=== PATIENT | female | born 1945 | race Caucasian/White ===

== ENCOUNTER 2024-05-05 04:32 | Inpatient (IN) | payer MEDICARE, BC, SELFPAY ==
[2024-05-04 22:02] VITALS: BP 169/93
[2024-05-04 22:18] LABS: % Basophils 0.8 % (0-2); % Eosinophils 2.9 % (0-6); % Immature Granulocytes 0.2 % (0-0.5); % Monocytes 7.2 % (1.7-9.3); % Neutrophils 68.9 % (42.2-75.2); Absolute Basophils 0.1 10^3/uL (0-0.2); Absolute Eosinophils 0.3 10^3/uL (0-0.7); Absolute Lymphocytes 1.9 10^3/uL (1.2-3.4); Absolute Monocytes 0.7 10^3/uL (0.1-0.6); Absolute Neutrophils 6.7 10^3/uL (1.4-6.5); Hematocrit 40.6 % (37.0-47.0); Hemoglobin 14.1 g/dL (12.0-16.0); Mean Corp Hgb Conc. 34.7 g/dL (33.0-37.0); Mean Corpuscular Hgb 33.1 pg (27.0-31.0); Mean Corpuscular Volume 95.3 fL (81.0-99.0); Mean Platelet Volume 9.3 fL (7.4-10.4); Nucleated Red Blood Cells % 0 %; Platelet Count 236 10^3/uL (130-400); Red Blood Cell Count 4.26 10^6/uL (4.20-5.40); Red Cell Dist. Width 13.3 % (11.5-14.5); White Blood Cell Count 9.7 10^3/uL (4.8-10.8)
[2024-05-04 22:29] LABS: INR 1.04; PT 13.4 Sec (11.4-14.6)
[2024-05-04 22:39] LABS: ALT (SGPT) 42 U/L (0-35); AST (SGOT) 71 U/L (14-36); Albumin 4.4 g/dl (3.5-5.0); Alkaline Phosphatase 209 U/L (38-126); Blood Urea Nitrogen 19 mg/dl (7-17); Calcium 9.6 mg/dl (8.4-10.2); Carbon Dioxide 25 mmol/L (22-30); Chloride 101 mmol/L (98-107); Glucose 116 mg/dl (70-99); Potassium 4.2 mmol/L (3.5-5.1); Sodium 139 mmol/L (135-145); Total Bilirubin 0.6 mg/dl (0.2-1.3); Total Protein 7.6 g/dl (6.3-8.2); eGFR 41.57
[2024-05-05] VITALS (24 sets, daily range): BP systolic 83–188; BP diastolic 70–113; BMI 28.5
--- NOTE | 2024-05-05 00:43 | ED.GENMED ---
History of Present Illness
General
Chief Complaint: Rectal Bleeding
Source: patient
Exam Limitations: none
Time Seen by Provider: 05/05/24 00:17
History of Present Illness
History of Present Illness:
This is a 78 year old female that comes in with c/o bright red rectal bleeding. States that they were out for dinner and around 8pm she felt like she was going to have diarrhea. States that she went to the bathroom and after she went the toilet was
full of bright red blood. States that 15 min later she went again and it was bright red bleeding. States that this happened 3 times. States that she has abd pain, feels nauseated and has back pain. States that she is always dizzy. Denies any fever,
chills, chest pain, SOB, vomiting, diarrhea, headache, urinary burning.
Past History
Past History
ED Past Medical History: HTN and Hypercholesterolemia
ED Past Surgical History: Orthopedic (Left knee surgery, Left elbow surgery)
Social History
Tobacco: Former smoker
Alcohol: Daily (1 drink)
Personal:
Living: with family
Review of Systems
Review of Systems
All Other Systems: ROS reviewed and negative except as documented in HPI and ROS
Constitutional: Reports no symptoms; Denies fever or chills
EENT: Reports no symptoms
Respiratory: Reports no symptoms; Denies cough or trouble breathing
Cardiac: Reports no symptoms; Denies chest pain
ABD/GI: Reports abdominal pain, nausea and bloody stools; Denies vomiting or diarrhea
: Reports no symptoms; Denies dysuria, frequency or urgency
Musculoskeletal: Reports no symptoms
Skin: Reports no symptoms
Neurological: Reports dizzy (Always dizzy); Denies headache
Psychiatric: Reports no symptoms
Phy Exam
General Physical Exam
General Presentation: no apparent distress
General age: appears stated age
General Skin: warm and dry
General Habitus: elderly
General Mental: alert
General Hydration: appears well hydrated
ENT Exam
ENT Exam: TM's normal, pharynx normal and neck supple
Eye Exam
Eye Exam: EOMI
Cardiovascular Exam
Cardiovascular Exam: regular rate/rhythm, no edema, no murmur and normal peripheral pulses
Pulmonary Exam
Pulmonary Exam: lungs clear, no respiratory distress, no rales, chest non tender, no crackles, no rhonchi, no wheezing and no cough
Gastrointestinal Exam
Gastrointestinal Exam: normal bowel sounds, soft, no organomegaly, no pulsatile mass, non distended and tender (Left and right sided abd tenderness with palpation)
Musculoskeletal Exam
Musculoskeletal Exam: full ROM and no edema
Skin Exam
Skin Exam: normal color, warm/dry, no rash and no petechia
Psychiatric Exam
Psychiatric Exam: normal mood/affect
Course
Orders/Labs/Results
Orders:
Orders
05/04/24 22:06
Cardiac Monitoring- Treatment ONCE
IV Insert/Care/Rem.- Treatment PRN
O2 Therapy [RESP] Urgent
Titrate/Wean O2 to maintain O2 sat greater than (%): 93
Special Instructions: MAINTAIN CONTINOUS O2 SATS > OR = 93%
Pulse Ox/spot Check [RESP] Urgent
Quantity: 1
Special Instructions: ON ROOM AIR
05/04/24 22:12
Type+Screen Urgent
Complete Blood Count/With Diff Urgent
Comprehensive Metabolic Panel Urgent
PTT Urgent
Prothrombin Time Urgent
05/04/24 22:18
ABO2 Urgent
BBK Wristband Number:
Associate notified that ABO2 has been ordered: [id number]
Date: 05/04/24
Time: 22:19
Terrazzo Layer Helper ID: [id number]
05/05/24 00:42
0.9% Sodium Chloride 1000 ml [Nss] 1,000 ml IV BOLUS
05/05/24 00:43
CT Abd/pelvis W Iv Cont Urgent
Comment:
Reason For Exam: abd pain, bright red rectal bleeding
05/05/24 03:21
Pantoprazole [Protonix IV] 80 mg IV NOW STA
05/05/24 03:33
Hematocrit Urgent
Hemoglobin Urgent
Abnormal Lab Results
05/04/24
22:12
MCH 33.1 H pg
(27.0-31.0)
Absolute Neuts (auto) 6.7 H 10^3/uL
(1.4-6.5)
Absolute Monos (auto) 0.7 H 10^3/uL
(0.1-0.6)
Lymphocytes % 20.0 L %
(20.5-51.1)
BUN 19 H mg/dl
(7-17)
Creatinine 1.3 H mg/dL
(0.6-1.0)
Glucose 116 H mg/dl
(70-99)
AST 71 H U/L
(14-36)
ALT 42 H U/L
(0-35)
Alkaline Phosphatase 209 H U/L
(38-126)
05/04/24 22:12
Slight Dehydration. Glucose nonfasting. AST/ALT elevation. Alk phos elevation. PT 13.4 with IRN 1.04, PTT 29.0
Vital Signs
Initial and Last Documented VS:
Initial Vital Signs
Temp Pulse Resp BP Pulse Ox
98.2 F 103 19 169/93 97
05/04/24 22:02 05/04/24 22:02 05/04/24 22:02 05/04/24 22:02 05/04/24 22:02
Last Documented Vital Signs
Temp Pulse Resp BP Pulse Ox
98.2 F 96 16 164/96 96
05/04/24 22:02 05/05/24 03:36 05/05/24 03:36 05/05/24 03:36 05/05/24 03:36
MDM/Problems Addressed
Differential Diagnosis Includes:
Colitis, GI bleeding
MDM/Problems Addressed:
This is a 78 year old female that comes in with c/o rectal bleeding. States that she went three times at home with bright red rectal bleeding. States that she has abd pain with nausea.
Will get CT scan, Blood work. Explained to patient that a rectal exam will be done if the CT is negative.
Back into see patient. Explained that her blood work shows some elevation of the Liver enzymes and that she is slightly dehydrated. CT shows that there is some active bleeding in the sigmoid colon. Will admit patient. Hospitalist notified.
Spoke with Interventional Radiology Dr. Mejias and reviewed Findings. Do not feel that this necessary to repeat CT and get CTA. Will reassess in morning.
Second Message sent to Dr. Mejias. Patient just her another stool and her HR is going up to 112 when up and she feels weaker and a little more dizzy. Await his response.
Dr Mejias responded and at this point did not feel anything immediately needed to be done. Patient is hypertensive so will watch. Repeat H/H was ordered.
Chronic conditions affecting care:
NA
Acute Exacerbation and/or Progression of Chronic Illness:
NA
*Radiology
Radiology exam reviewed: radiology read reviewed (CT nght hawk-Moderate sized hiatal hernia. Promient sigmoid diverticulosis without diverticulitis. There is intraluninal hyperdensity within the mid to distal sigmoid colon suggestive of active
bleeding. Mild stool present within the colon. No evidence of bowel obstruction or bowel wall thickening.) and other (CT cont-Normal gallbladder. No ydronephrosis or obstructing urinary calculi. Bladder is unremarkable. Uterus and adnexa are
unremarkable. MIld vascular calcifications. No AAA or dissection. Lung bases are unremarkable. )
*Pulse Oximetry
Patient hypoxic: no
*EKG
Interpreted by ED Provider?: NA
Rate: EKG- N/A
*Concession Manager Interpretation
Rate: Concession Manager- N/A
*Critical Care Note
Total Time (30-74mins, 75-104mins- exclusive of procedures): Not Applicable
ED Attending Note
-
Portions of this chart may have been created with voice recognition software.� Occasional wrong word or��sound alike� substitutions may have occurred due to the inherent limitations of voice recognition software.
Discharge Plan
Departure
Patient Disposition: Admit
Date of Disposition: 05/05/24
Time of Disposition: 02:27
Admit to: Telemetry
Presentation/result/management discussed w/ accepting MD/DO: Hospitalist
Condition: Good
Covid-19: Not Applicable
Discharge Problem:
Bright red rectal bleeding
Referrals:
Sandra Davidson DO [Family Provider] -
Interventions
Interventions:
*Risk Screen - Suicide Last Done: 05/04/24 22:02
*General Assessment Last Done: 05/04/24 22:02
*Neglect/Abuse Screening Last Done: 05/04/24 22:02
*ED COVID-19 Vaccine History Last Done: 05/04/24 22:02
HM-Wyfwjw-Dbmkpeqwze Assessment Last Done: 05/05/24 00:39
ED- Cardiac Assessment Last Done: 05/05/24 00:39
ED- Pulmonary Assessment Last Done: 05/05/24 00:39
Discharge Date and Time
Print Language: URDU
[2024-05-05] MEDS: NSS 1000 IV ×5 (01:18→21:16)
[2024-05-05] MEDS: PROTONIX IV 80 MG IV (03:33)
[2024-05-05 03:49] LABS: Hematocrit 34.7 % (37.0-47.0); Hemoglobin 12.1 g/dL (12.0-16.0)
--- NOTE | 2024-05-05 04:15 | HPS.HSE ---
Family Physician
-
Family Physician: Sanrda Davidson
Chief Complaint
-
BRBPR
History of Present Illness
Patient is an 78y F with PMH significant for GERD and hypothyroidism who presents to ED complaining of BRBPR. Patient states that she was feeling well until she thought she had some diarrhea after dinner. She stood from the toilet and
appreciated BRB on the toilet paper. She noted that the bowel was full of BRB. Patient states that she had a total of 3 episodes of BRBPR at home and then presented to the ED for further evaluation. She has since had 2-3 additional episodes here.
Patient complains of feeling very weak. She denies any diaphoresis, nausea, dyspnea, etc. She notes crampy lower abdominal pain prior to bloody BMs.
Patient denies any prior h/o GI bleeding.
Medical History
Past Medical History
Past Medical History: Reports Other
Additional Past Medical History:
GERD
Hypothyroidism
Past Surgical History: Reports Other
Additional Past Surgical History:
T&A
Left TKA
Left Elbow ORIF with Hardware
Cataracts
Social History
Tobacco: Former Smoker (Quit smoking 40 years ago.)
Alcohol: Daily (1 glass wine daily.)
Drug: None
Personal:
Living: With Family
Family History
Family History: Not pertinent
Allergies / Home Medications
Allergies reflects when Allergies were last updated in [facility].
Home Medications with original date entered in [facility]
Allergy/Medication List:
Allergies
Allergy/AdvReac Type Severity Reaction Status Date / Time
nitrofurantoin Allergy Unknown Verified 05/04/24 22:03
[From Macrobid]
sulfamethoxazole Allergy Unknown Verified 05/04/24 22:02
[From Bactrim]
trimethoprim [From Bactrim] Allergy Unknown Verified 05/04/24 22:02
Home Medications
levothyroxine 75 mcg tablet 75 mcg PO TUTHSA 05/05/24
levothyroxine 88 mcg tablet 88 mcg PO SUMOWEFR 05/05/24
omeprazole 20 mg tablet,delayed release 20 mg PO DAILY 05/05/24
Review of Systems
-
History Source: Patient
A 12 point ROS was completed and negative except as noted: Yes
Constitutional: Reports Fatigue; Denies Fever or Chills
EENT: Denies Sore Throat
Respiratory: Denies Cough or Trouble Breathing
Cardiac: Denies Chest Pain or Palpitations
Abdomen/GI: Reports Abdominal Pain, Diarrhea and Bloody Stools; Denies Nausea or Vomiting
: Denies Dysuria, Frequency or Flank Pain
Neurological: Denies Dizzy or Headache
Psych: Denies Depression or Anxiety
Physical Exam
Vital Signs
Vital Signs
Temp Pulse Resp BP Pulse Ox
98.2 F 96 16 164/96 96
05/04/24 22:02 05/05/24 03:36 05/05/24 03:36 05/05/24 03:36 05/05/24 03:36
Physical Exam
General: Other (78y F in no acute distress.)
HEENT: PERRLA and Other (Dry MM.)
Respiratory: Clear; No Wheezes, Rales or Rhonchi
Cardiac: S1/S2 and Tachycardia; No Murmur
GI: Soft, Non Distended, Normal Bowel Sounds and Other (Mild tenderness in lower abdomen.)
Musculoskeletal: No Clubbing, No Cyanosis and No Edema
Neuro: AO x 3
Laboratory Results
-
05/05/24 03:43
05/04/24 22:12
Laboratory Results
PT 13.4 Sec (11.4-14.6) 05/04/24 22:12
INR 1.04 05/04/24 22:12
APTT 29.0 Sec (23.4-35.0) 05/04/24 22:12
Total Bilirubin 0.6 mg/dl (0.2-1.3) 05/04/24 22:12
AST 71 U/L (14-36) H 05/04/24 22:12
ALT 42 U/L (0-35) H 05/04/24 22:12
Alkaline Phosphatase 209 U/L (38-126) H 05/04/24 22:12
Impression/Plan
-
A/P: Patient is an 78y F with PMH significant for GERD and hypothyroidism who presents to ED complaining of BRBPR.
Lower GI Bleed
- Admit for further evaluation and treatment.
- Patient with multiple bloody BMs this evening and continues to pass bloody stool in the ED.
- CT scan done by ED shows evidence for active blood loss in the sigmoid colon.
- ED reviewed findings with IR.
- Currently patient is hypertensive and Hgb has been 14 and 12 on serial checks.
- Not on any antiplatelet or anticoagulant medications.
- Will monitor for now for any continued bleeding.
- Follow for changes in BP / hemodynamics, Hgb, etc.
- IR and GI evaluations in the AM - sooner if patient clinically deteriorates.
- IVFs support. Follow H&H and transfuse if needed. Consent obtained.
BOY v CKD
- SCr = 1.3 with no prior value for comparison.
- Likely BOY due to volume loss
- IVFs +/- blood products as noted above.
- Follow for improvement in renal function.
Hypothyroidism
- Stable. Continue current T4 replacement.
GERD
- Stable. Continue daily PPI.
DVT Prophylaxis: SCDs
Code Status: Full
[2024-05-05] MEDS: TYLENOL 650 MG PO (06:13)
[2024-05-05] MEDS: SYNTHROID 88 MCG PO (06:14)
[2024-05-05 06:30] LABS: Hematocrit 34.6 % (37.0-47.0); Hemoglobin 12.1 g/dL (12.0-16.0)
[2024-05-05 06:39] LABS: Blood Urea Nitrogen 19 mg/dl (7-17); Calcium 8.6 mg/dl (8.4-10.2); Carbon Dioxide 20 mmol/L (22-30); Chloride 108 mmol/L (98-107); Estimated Creatinine Clearance 43 ml/min; Glucose 114 mg/dl (70-99); Potassium 4.1 mmol/L (3.5-5.1); Sodium 140 mmol/L (135-145); eGFR 56.95
--- NOTE | 2024-05-05 06:42 | CON.GI ---
Addendum entered and electronically signed by Michelle Vasquez Do, MD 05/05/24 16:03:
I saw and examined the patient.
The MESS ATTENDANT CREW's note was reviewed and I agree with the note.
Comment: Bettina bhardwaj is an 78yo W with hypothyroidism who presents with painless hematochezia. She denies abd pain nausea/vomiting. She had 2 bloody BM this AM. Vitals reviewed. labs showed Hbg 12 to 11. CTA showed extravasation in the sigmoid
colon. Went to IR 05/05 but no active site found bleeding to embolize
Impression
- Painless hematochezia with abnormal CTA extravasation in sigmoid colon
Suspect diverticular bleeding- 1st episode
- Mild anemia
- GERD
- Hypothyroidism
Recommendations
- Pt seen in IR no active bleeding to embolize vessel
- Adv to CLD
- Monitor stool output
- May benefit from colonoscopy if bleeding persists. Her last one was >8yrs ago
- Serial H/H
Will follow with you.
Addendum entered and electronically signed by WANDA Hernandez 05/05/24 10:10:
still with bleeding-- reviewed with Dr. Bhat and hospitalist will proceed with urgent CTA. I updated IR on status.
Original Note:
Consultation
-
Date/Time Consultation Requested: 05/05/24 0520
Date/Time Consultation Performed: 05/05/24 0640
Requesting Provider: Pierre Lema DO
Performing Provider: WANDA Gomes, Michelle Bhat MD
Reason for Consultation: rectal bleeding
Medical History
Chief Complaint / HPI
Chief Complaint: rectal bleeding
History of Present Illness:
Pt is an 78yo presents with hx GERD, hypothyroidism with onset of bright red blood per rectum. On admission hbg 14.1 with drop to 12.[address] completed Irregularly-shaped increased attenuation within the sigmoid colon which could possibly
represent contrast extravasation. Not definitive in the absence of a noncontrast series or delayed series. There is extensive colonic diverticulosis and Moderate hiatal hernia. In reviewing with patient no hx GI bleeding. She began at 8 PM with
larger volume bleeding with about 8 episode of bleeding since that time. Last colonoscopy about 8 years ago recalls as normal.
Pt otherwise denies dysphagia, odynophagia, GERD, nausea, vomiting, abdominal pain, diarrhea, constiaption or prior bleeding. No anticoagulation and admits to course on NSAIDs about 1 1/2 months ago for pain.
Past Medical History
Past Medical History: GERD and Hypothyroidism
Past Surgical History: Orthopedic (left TKA, left elbow with hardware), Tonsilectomy and Other (cataracts)
Social History
Tobacco: Former Smoker
Alcohol: Daily (1 drink daily )
Drug: None
Personal:
Living: With Family
Employment: Retired
Family History
Family History: Other (no family hx colon Ca or polyps)
Allergies / Home Medications
Allergy/AdvReac Type Severity Reaction Status Date / Time
nitrofurantoin Allergy Unknown Verified 05/04/24 22:03
[From Macrobid]
sulfamethoxazole Allergy Unknown Verified 05/04/24 22:02
[From Bactrim]
trimethoprim [From Bactrim] Allergy Unknown Verified 05/04/24 22:02
�Medication �Instructions �Recorded
levothyroxine 75 mcg tablet 75 mcg PO TUTHSA 05/05/24
levothyroxine 88 mcg tablet 88 mcg PO SUMOWEFR 05/05/24
omeprazole 20 mg tablet,delayed 20 mg PO DAILY 05/05/24
release
Review of Systems
-
History Source: Patient
Constitutional: Reports No Symptoms
EENT: Reports No Symptoms
Respiratory: Reports No Symptoms
Cardiac: Reports No Symptoms
Abdomen/GI: Reports Bloody Stools
: Reports No Symptoms
Musculoskeletal: Reports No Symptoms
Neurological: Reports Dizzy (chronic )
Endocrine: Reports No Symptoms
Hematologic/Lymphatic: Reports Bleeding
Vital Signs
Temp Pulse Resp BP Pulse Ox
97.7 F 95 21 160/88 98
05/05/24 05:28 05/05/24 04:45 05/05/24 04:45 05/05/24 04:27 05/05/24 05:42
Physical Exam
Exam
General: Well Developed, Well Nourished and No Apparent Distress
HEENT: Normocephalic and Anicteric
Respiratory: Clear
Cardiac: Regular Rhythm
GI: Soft, Non Distended and Tender (minimal lower tenderness )
Rectal: Other (passing bright red blood per staff )
Musculoskeletal: No Clubbing and No Cyanosis
Skin: Warm and Dry
Neuro: Awake, Alert and AO x 3
Psych: Calm
Results
WBC 9.7 10^3/uL (4.8-10.8) 05/04/24 22:12
Hgb 12.1 g/dL (12.0-16.0) 05/05/24 06:16
Hct 34.6 % (37.0-47.0) L 05/05/24 06:16
MCV 95.3 fL (81.0-99.0) 05/04/24 22:12
Plt Count 236 10^3/uL (130-400) 05/04/24 22:12
Absolute Neuts (auto) 6.7 10^3/uL (1.4-6.5) H 05/04/24 22:12
PT 13.4 Sec (11.4-14.6) 05/04/24 22:12
INR 1.04 05/04/24 22:12
APTT 29.0 Sec (23.4-35.0) 05/04/24 22:12
Sodium 140 mmol/L (135-145) 05/05/24 06:16
Potassium 4.1 mmol/L (3.5-5.1) 05/05/24 06:16
Chloride 108 mmol/L (98-107) H 05/05/24 06:16
Carbon Dioxide 20 mmol/L (22-30) L 05/05/24 06:16
BUN 19 mg/dl (7-17) H 05/05/24 06:16
Creatinine 1.0 mg/dL (0.6-1.0) 05/05/24 06:16
Calcium 8.6 mg/dl (8.4-10.2) 05/05/24 06:16
Total Bilirubin 0.6 mg/dl (0.2-1.3) 05/04/24 22:12
AST 71 U/L (14-36) H 05/04/24 22:12
ALT 42 U/L (0-35) H 05/04/24 22:12
Alkaline Phosphatase 209 U/L (38-126) H 05/04/24 22:12
Diagnostic Image Results:
05/05/24 CT A/p
1. Irregularly-shaped increased attenuation within the sigmoid colon which could possibly represent contrast extravasation. Not definitive in the absence of a noncontrast series or delayed series. There is extensive colonic diverticulosis.
2. Moderate hiatal hernia.
Prior GI Procedures:
EGD: 4 years ago recalls as normal
Colonoscopy: 8 years ago recalls as normal
Assessment / Plan
-
Pt is an 78yo presents with hx GERD, hypothyroidism with onset of bright red blood per rectum. On admission hbg 14.1 with drop to 12.[address] completed Irregularly-shaped increased attenuation within the sigmoid colon which could possibly
represent contrast extravasation. Not definitive in the absence of a noncontrast series or delayed series. There is extensive colonic diverticulosis and Moderate hiatal hernia. In reviewing with patient no hx GI bleeding. She began at 8 PM with
larger volume bleeding with about 8 episode of bleeding since that time. Last colonoscopy about 8 years ago recalls as normal.
-rectal bleeding
-GERD
-hypothyroidism
-hx TKA, ORIF elbow
-cataracts
PLAN:
Etiology of bleeding related to diverticular bleed vs other
CT A/p with IV contrast(not angio) noted possible contrast extravasation in sigmoid
IR consulted
NPO
trend hbg and stool records
if continued bleeding will need to further review with IR need for CTA vs intervention vs colonoscopy
cont PPI daily with hx GERD
reviewed with nursing staff for updated with further bleeding
-
-
Thank you for consultation and allowing me to participate in the patient's care. Please call the engineering production liaison GI physician during the after hours with any questions or concerns.
--- NOTE | 2024-05-05 07:52 | W.PN.HOSP.TC ---
Addendum entered and electronically signed by Beka Peña MD 05/05/24 20:58:
Attending Addendum-
I saw and evaluated the patient. I reviewed the resident�s note and agree with findings and plan as documented in the resident�s note. Sub: continues to have clotted dark stools. Mild abd pain. No N/V Full 12 point ROS reviewed and negative except
as documented Exam: Vitals reviewed in chart GEN-NAD heart tachycardic regular abd mild TTP RUQ ext no edema
Assessment/Plan:
# Lower GI Bleed
- Appreciate GI input
- check CTA stat-Focus of suspected intraluminal contrast within the distal sigmoid colon, not seen on precontrast images. multiple diverticula are seen in this area. Findings likely represent active bleeding from a sigmoid diverticulum.
- IRAD c/s for possible embolization
- Follow for changes in BP / hemodynamics, Hgb q 6
- IVFs support. Follow H&H and transfuse for HB<7. Consent obtained.
# BOY
- resolving with IVF
- Likely BOY due to volume loss
- cont IVF
- repeat BMP in am
# Hypothyroidism
- Stable. Continue current T4 replacement.
# GERD
- Stable. Continue daily omeprazole
# HTN
- no formal dx
- CTM
DVT Prophylaxis: SCDs
Code Status: Full
Time spent coordinating care, review of plan of care with resident, personally reviewed records in EMR, med rec, consults, notes, labs, radiology, d/w nursing GI � 58 mins
Original Note:
Today's Communication/Plan
-
Keep clear liquid diet. S/p CTA, no active bleed in the sigmoid. GI following.
Assessment / Plan
Assessment / Plan
78 year old female with a PMHx of GERD and Hypothyroidism who presented to the ED with bright red blood per rectum x3 episodes
##Painless Hematochezia, likely secondary to colitis vs. diverticular bleed
#Mild Anemia
- CT scan - shows extravasation in the sigmoid colon
- Hgb 12.2 to 11.1, pending repeat H&H.
- GI following; waiting for bleeding to resolve before they can perform colonoscopy.
- IR; no active bleeding was visualized during procedure & no intervention was performed. Nonspecific infectious/inflammatory process
- Transfuse if Hgb <7, Platelets <30
- lactate 1.1
- IVFs support, 125mls/hr
- Clear liquid diet
#Hypertension
- ECG done in ED showed NSR
- likely response to GI bleed
- Will monitor
#BOY vs CKD
- Cr on admission 1.3, 1.0 in the AM today.
- Likely BOY due to volume loss, which is now resolved.
- Will monitor with BMP
#Hypothyroidism
- Stable
- Continue Levothyroxine
#GERD
- Stable
- Continue daily PPI
Dispo: ICU
DVT PPE: SCDs
Diet: Clear Liquid
Code Status: Full Code
Anticipated Discharge: 24 - 48 hours
Subjective/Interval History
-
Overnight she had approx. 3 episodes of BRBPR. In the early AM she had another bowel movement of darker, clotted blood & a second one during our encounter. Her abdominal pain is minimal this morning.
Objective Data
-
Labs:
Laboratory Results
05/04/24 05/05/24 05/05/24
22:12 03:43 06:16
WBC 9.7
Hgb 14.1 12.1 12.1
Hct 40.6 34.7 L 34.6 L
Plt Count 236
PT 13.4
INR 1.04
APTT 29.0
Sodium 139 140
Potassium 4.2 4.1
Chloride 101 108 H
Carbon Dioxide 25 20 L
BUN 19 H 19 H
Creatinine 1.3 H 1.0
Glucose 116 H 114 H
Calcium 9.6 8.6
Total Bilirubin 0.6
AST 71 H
ALT 42 H
Alkaline Phosphatase 209 H
05/05/24 05/05/24 05/05/24
11:20 17:20 23:20
WBC
Hgb Pending Pending Pending
Hct Pending Pending Pending
Plt Count
PT
INR
APTT
Sodium
Potassium
Chloride
Carbon Dioxide
BUN
Creatinine
Glucose
Calcium
Total Bilirubin
AST
ALT
Alkaline Phosphatase
Vital Signs:
Vital Signs
Temp Pulse Resp BP Pulse Ox
97.7 F 95 21 160/88 98
05/05/24 05:28 05/05/24 04:45 05/05/24 04:45 05/05/24 04:27 05/05/24 05:42
Review of Systems
-
History Source: Patient
All other systems: Reviewed and negative
Constitutional: Reports No Symptoms
EENT: Reports No Symptoms Reported
Respiratory: Reports No Symptoms
Cardiac: Reports No Symptoms
Abdomen/GI: Reports Abdominal Pain (Minimal) and Bloody Stools
Breast: Reports N/A
Genitourinary: Reports No Symptoms
Musculoskeletal: Reports No Symptoms
Skin: Reports No Symptoms
Neuro: Reports No Symptoms
Physical Exam
-
General: Well Developed, Well Nourished, No Apparent Distress and Comfortable
HEENT: Normocephalic, Atraumatic, Moist Mucous Membranes, Keats Conjunctivae and PERRLA
Respiratory: Clear to Auscultation
Cardiac: Regular Rhythm and S1/S2
Breast: Deferred by me
GI: Soft, Nontender, Nondistended and Normal Bowel Sounds
Rectal: Deferred by Provider
Musculoskeletal: No Clubbing, No Cyanosis and No Edema
Skin: Warm and Dry
Neuro: Awake, Alert and Oriented
[2024-05-05] MEDS: PROTONIX IV 40 MG IV (08:37)
--- NOTE | 2024-05-05 10:31 | CM ---
Patient seen at bedside. Patient sleeping on couch in room. Patient lives in an independent apartment with spouse at [facility]. Patient uses the [facility] on [address]; neighborhood. Patient PCP is Dr. Davidson from [facility].
Patient does not need any DME nor has had VN recently. Patient indicated that she is independent of ADL's and IADL's. CM will continue to follow for discharge planning needs.
Plan; home with VN vs home with no needs.
[2024-05-05] MEDS: NSS IV ×2 (12:14→14:47)
--- NOTE | 2024-05-05 12:48 | W.PN.UPDATE ---
Update Note
Progress Note Update
CTA with distal sigmoid bleeding. I reviewd with Dr. Maki plan for angio. I updated pt and spouse
[2024-05-05 13:03] LABS: Lactic Acid 1.1 mmol/L (0.7-2.0)
[2024-05-05 13:06] LABS: Hematocrit 32.4 % (37.0-47.0); Hemoglobin 11.2 g/dL (12.0-16.0)
--- NOTE | 2024-05-05 14:09 | PTCARENOTE ---
Assumed care of patient at beginning of this shift from second shift supervisor RN; cannot verify accuracy of vital signs prior to 0700. Patient had 2 episodes this morning of bloody stool with small clots. [place] text sent to hospitalist, resident and GI. CT
angio ordered and completed; patient currently in IRAD. Able to wean to RA with POx 95%. See worklist for full assessment and vital signs.
--- NOTE | 2024-05-05 15:32 | IR.POSTOP ---
IRAD Post Procedure Note
-
Description of Findings:
LIZETTE angiography revealed hyperemia in the descending colon and sigmoid likely due to a nonspecific infectious/inflammatory process. No active bleeding was seen, and as such, no intervention was performed.
[2024-05-06] VITALS (8 sets, daily range): BP systolic 134–156; BP diastolic 58–78
--- NOTE | 2024-05-06 00:08 | PTCARENOTE ---
Caring for pt overnight. aaox3, pleasant. C/o cramping/tender pain in her abdomen. IVF running. NSR on monitor. Remains RA. Groin site looks good, dressing CDI. VSS. No other issues at this time. Will monitor.
[2024-05-06] MEDS: NSS 1000 IV (05:23)
[2024-05-06] MEDS: SYNTHROID 75 MCG PO (05:39)
[2024-05-06 06:01] LABS: % Basophils 0.9 % (0-2); % Eosinophils 5.8 % (0-6); % Immature Granulocytes 0.3 % (0-0.5); % Lymphocytes 26.6 % (20.5-51.1); % Monocytes 7.1 % (1.7-9.3); % Neutrophils 59.3 % (42.2-75.2); Absolute Basophils 0.1 10^3/uL (0-0.2); Absolute Eosinophils 0.4 10^3/uL (0-0.7); Absolute Lymphocytes 1.8 10^3/uL (1.2-3.4); Absolute Monocytes 0.5 10^3/uL (0.1-0.6); Hematocrit 29.7 % (37.0-47.0); Hemoglobin 10.2 g/dL (12.0-16.0); Mean Corp Hgb Conc. 34.3 g/dL (33.0-37.0); Mean Corpuscular Hgb 33.9 pg (27.0-31.0); Mean Corpuscular Volume 98.7 fL (81.0-99.0); Mean Platelet Volume 9.5 fL (7.4-10.4); Nucleated Red Blood Cells % 0 %; Platelet Count 203 10^3/uL (130-400); Red Blood Cell Count 3.01 10^6/uL (4.20-5.40); Red Cell Dist. Width 13.5 % (11.5-14.5); White Blood Cell Count 6.7 10^3/uL (4.8-10.8)
[2024-05-06 06:12] LABS: Blood Urea Nitrogen 16 mg/dl (7-17); Calcium 8.2 mg/dl (8.4-10.2); Carbon Dioxide 20 mmol/L (22-30); Chloride 111 mmol/L (98-107); Estimated Creatinine Clearance 48 ml/min; Glucose 87 mg/dl (70-99); Sodium 141 mmol/L (135-145); eGFR > 60.00
--- NOTE | 2024-05-06 07:05 | PTCARENOTE ---
No BM's overnight. Hgb 10 this morning.
--- NOTE | 2024-05-06 07:14 | W.PN.HOSP.TC ---
Addendum entered and electronically signed by Beka Peña MD 05/06/24 23:44:
Attending Addendum-
I saw and evaluated the patient. I reviewed the resident�s note and agree with findings and plan as documented in the resident�s note. Sub: no further dark stools. feels great. wants to go home. seen with who is in agreement.. No N/V Full 12
point ROS reviewed and negative except as documented Exam: Vitals reviewed in chart GEN-NAD heart tachycardic regular abd NTTP soft ext no edema
Assessment/Plan:
# Lower GI Bleed
- resolved
- Appreciate GI input
- IRAD-05/05-no bleeding vessels noted during angiogram
# BOY
- resolved
# Hypothyroidism
- Stable. Continue current T4 replacement.
# GERD
- Stable. Continue daily omeprazole
# HTN
- no formal dx
- CTM
DVT Prophylaxis: SCDs
Code Status: Full
Dispo DC home with with close follow up
Time spent coordinating care, DC planning, review of DC plan of care with resident, transition of care, review of records, med rec/scripts sent electronically, consults, notes, d/w consultants, nursing, family, and CM� 36 mins
Original Note:
Today's Communication/Plan
-
Likely discharge today if Hgb is stable. Patient will follow up with GI as an outpatient for colonoscopy. Follow up with PCP in 1-2 days w/ a repeat CBC in 1 week.
Assessment / Plan
Assessment / Plan
78 year old female with a PMHx of GERD and Hypothyroidism who presented to the ED with bright red blood per rectum x3 episodes
##Painless Hematochezia secondary to bleeding sigmoid diverticulum
#Acute Blood Loss Anemia
- CT scan - shows extravasation in the sigmoid colon
- Hgb 12.2 to 11.2, 10.2 today, pending repeat H&H
- GI following; may benefit from colonoscopy if bleeding persists. otherwise can follow up outpatient.
- IR; no active bleeding was visualized during procedure & no intervention was performed. Hyperemia due to nonspecific infectious/inflammatory process
- Transfuse if Hgb <7, Platelets <30
- lactate 1.1
- Advance to low residue diet d/c IVF
#Hypertension
- ECG done in ED showed NSR
- likely response to GI bleed
- Will monitor
#BOY (resolved)
- Cr on admission 1.3, 1.0, now 0.9 today.
- Likely BOY due to volume loss, which is now resolved.
- Will monitor with BMP
#Hypothyroidism
- Stable
- Continue Levothyroxine
#GERD
- Stable
- Continue daily PPI
Dispo: ICU
DVT PPE: SCDs
Diet: Low Residue Diet
Code Status: Full Code
Anticipated Discharge: Today
Subjective/Interval History
-
No new bleeding episodes overnight; has not had a bowel movement this AM. No acute events over night and no complaints this morning.
Objective Data
-
Labs:
Laboratory Results
05/06/24
05:52
WBC 6.7
Hgb 10.2 L
Hct 29.7 L
Plt Count 203
Sodium 141
Potassium 4.0
Chloride 111 H
Carbon Dioxide 20 L
BUN 16
Creatinine 0.9
Glucose 87
Calcium 8.2 L
Vital Signs:
Vital Signs
Temp Pulse Resp BP Pulse Ox
98.1 F 109 22 149/76 96
05/06/24 03:30 05/06/24 06:00 05/06/24 06:00 05/06/24 04:00 05/06/24 06:00
I&O
05/05/24 05/06/24 05/07/24
06:59 06:59 06:59
Intake Total 150 / 150
Balance 150 / 150
Review of Systems
-
History Source: Patient
All other systems: Reviewed and negative
Constitutional: Reports No Symptoms
EENT: Reports No Symptoms Reported
Respiratory: Reports No Symptoms
Cardiac: Reports No Symptoms
Abdomen/GI: Reports No Symptoms
Breast: Reports No Symptoms
Genitourinary: Reports No Symptoms
Musculoskeletal: Reports No Symptoms
Skin: Reports No Symptoms
Neuro: Reports No Symptoms
Physical Exam
-
General: Well Developed, Well Nourished and No Apparent Distress
HEENT: Normocephalic and Atraumatic
Respiratory: Clear to Auscultation
Cardiac: Regular Rhythm and S1/S2
Breast: Deferred by me
GI: Soft, Nontender, Nondistended and Normal Bowel Sounds
Genito-urinary: No Costovertebral Tender
Musculoskeletal: No Clubbing, No Cyanosis and No Edema
Skin: Warm and Dry
Neuro: Awake, Alert and Oriented
[2024-05-06] MEDS: PROTONIX IV 40 MG IV (07:50)
--- NOTE | 2024-05-06 08:58 | W.PN.GI.CBS2 ---
Today's Communication / Plan
-
Adv to low residue diet
Observe bowel movements
Assessment / Plan
-
Bettina bhardwaj is an 78yo W with hypothyroidism who presents with painless hematochezia. She denies abd pain nausea/vomiting. She had 2 bloody BM this AM. Vitals reviewed. labs showed Hbg 12 to 11. CTA showed extravasation in the sigmoid colon.
Went to IR 05/05 but no active site found bleeding to embolize
Impression
- Painless hematochezia with abnormal CTA extravasation in sigmoid colon
Suspect diverticular bleeding around sigmoid as confirmed on CTAx2- 1st episode
- Mild anemia
- GERD
- Hypothyroidism
Recommendations
- Pt seen in IR 05/05 no active bleeding to embolize vessel
- Adv to low residue diet and monitor
- Monitor stool output
- May benefit from colonoscopy if bleeding persists. Her last one was >8yrs ago
- Serial H/H
- 2 large bore IVs
Will follow with you.
Subjective
Subjective
Date of Service: May 06, 2024
She has not had further bloody diarrhea. There is some 5 out of 10 abd pain in RUQ. No nausea/vomiting.
Objective
Data Reviewed
Laboratory Data:
Laboratory Results
05/06/24 05:52
Laboratory Results
PT 13.4 Sec (11.4-14.6) 05/04/24 22:12
INR 1.04 05/04/24 22:12
APTT 29.0 Sec (23.4-35.0) 05/04/24 22:12
Total Bilirubin 0.6 mg/dl (0.2-1.3) 05/04/24 22:12
AST 71 U/L (14-36) H 05/04/24 22:12
ALT 42 U/L (0-35) H 05/04/24 22:12
Alkaline Phosphatase 209 U/L (38-126) H 05/04/24 22:12
Vital Signs and I&O:
Vital Signs
Temp Pulse Resp BP Pulse Ox
98.1 F 109 22 149/76 96
05/06/24 03:30 05/06/24 06:00 05/06/24 06:00 05/06/24 04:00 05/06/24 06:00
I&O
05/05/24 05/06/24 05/07/24
06:59 06:59 06:59
Intake Total 150 / 150
Balance 150 / 150
Physical Exam
Physical Exam
GEN: No acute distress, conversant, pleasant
HEENT: anicteric, extraocular movements intact, clear oropharynx without exudates
GI: soft, non-distended, RUQ mildly tender to palpation, normal active bowel sounds, no hepatosplenomegaly
EXT: warm, well perfused, no edema bilaterally
NEURO: AAOx3, non-focal
[2024-05-06 09:43] LABS: Iron 112 ug/dl (37-170)
[2024-05-06 09:52] LABS: Percent Saturation 42 % (20-50); Total Iron Binding Capacity 265 ug/dl (265-497)
--- NOTE | 2024-05-06 10:39 | W.DCSUMMARY ---
Addendum entered and electronically signed by Beka Peña MD 05/06/24 23:45:
Read, reviewed, and agree. See same day progress note for additional details. Patient agreeable to very close follow up d/w .
Merlin Peña MD
Original Note:
Documented by User: Lambert Paulson MD, Resident 05/06/24 17:00
Discharge Summary
Discharge Data
Date of Admission: 05/05/24
Date of Discharge: 05/06/24
-
Pending Results: No
Hospital Course
Discharging Physician : Dr. Lambert Paulson, Dr. Beka Peña
Disposition : Home
Primary care physician :
Principal Discharge diagnosis :
Painless Hematochezia
Mild Anemia
BOY
Hypertension
Chronic Discharge diagnosis :
GERD
Hypothyroidism
Hospital Course :
78 year old female with a PMHx of GERD and Hypothyroidism who presented to the ED with bright red blood per rectum x3 episodes.
Patient states that she was feeling well until she thought she had some diarrhea after dinner. She stood from the toilet and appreciated BRB on the toilet paper. She noted that the bowel was full of BRB. Patient states that she had a total of 3
episodes of BRBPR at home and then presented to the ED for further evaluation. She had 3 more episodes of blood bowel movements and a CT scan showed active blood loss in the sigmoid colon, with a declining hemoglobin (from 14 to 12). Patient was
admitted, given IVF support and orders were placed to trend H&H. She was found to have an BOY, likely secondary to volume loss, and was also managed with IVF. Her chronic diagnoses of Hypothyroidism and GERD were managed on home medication.
In the AM she received a CTA which showed hyperemia of the sigmoid colon, but no active bleeding. She did not receive a colonoscopy as the bleeding was resolving on its own and visualization would not have been possible at that time. She was
continued on IVF and remained hemodynamically stable throughout. There were two episodes of bloody bowel movements on hospital day 2, which contained dark, clotted blood.
It was determined that without an active bleed visualized with angiography, there was no need for embolization. Patient was then in no immediate need for colonoscopy, which could be performed out patient.
The patient was aware of the plan, and was OK to continue with follow up colonoscopy as an out patient.
Hospital Day 3 she remained hemodynamically stable with no new episodes of bloody bowel movements. She tolerated a breakfast of clear liquids and a solid food lunch. She was discharged with instructions for close follow up with her PCP in 1-2 days,
and instructed to receive a CBC in 1 week for monitor her anemia. The anemia was believed to be due to the acute blood loss; with the blood loss resolved and the patient hemodynamically stable and tolerating PO intake, she was deemed stable enough
for discharge and OP follow up.
Important imaging findings :
CT Abd/pelvis W Iv Cont:
1. Irregularly-shaped increased attenuation within the sigmoid colon which could possibly represent contrast extravasation. Not definitive in the absence of a noncontrast series or delayed series. There is extensive colonic diverticulosis.
2. Moderate hiatal hernia.
CTA of the Abd/Pelvis w/wo IV Cont:
1. Focus of suspected intraluminal contrast within the distal sigmoid colon, not seen on precontrast images. Abnormality was seen in this area on prior contrast-enhanced CT, and multiple diverticuli are seen in this area. Findings likely represent
active bleeding from a sigmoid diverticulum.
2. Bladder diverticulum.
XA Angiography Visceral Select; XA Mod Sedation Addl; XA Mod Sedation First; XA Carlie Cath 2nd Abd Pel L/e; XA U/s Guide Cvad:
No evidence of active bleeding in the LIZETTE territory. As such, no intervention was performed.
Hyperemia involving the mid to distal descending colon, and to a lesser extent the sigmoid, likely reflecting a nonspecific infectious/inflammatory process.
Discharge Plan
-
Patient Disposition: Home (Routine Discharge)
Discharge Diagnosis/Procedures: Painless Hematochezia, Mild Anemia, BOY, Hypertension
Condition: Good
Diet: No restrictions
Activity: No restrictions
Driving Restrictions: As prior to admission
Bathing Restrictions: None
Blood Work: CBC in 1 week
Instructions: Gastrointestinal Bleeding (DC)
Referrals:
Michelle Bhat MD [Active] - (call office to set up GI follow up. Will need to consider colonoscopy with recent bleeding)
Sandra Davidson DO [Family Provider] - in one to two days (Follow up in 1-2 days w/ Primary Care Provider, repeat CBC in 1 week)
Prescriptions:
Continued
levothyroxine 75 mcg Tablet
75 mcg PO TUTHSA
levothyroxine 88 mcg Tablet
88 mcg PO SUMOWEFR
omeprazole 20 mg Tablet,Delayed Release (Dr/Ec)
20 mg PO DAILY
Discharge Orders:
Discharge Patient (As Directed); Ordered 05/06/24
Ordered By: Lambert Paulson
Discharge Date and Time
Discharge Date/Time: 05/06/24 17:29
Print Language: PRYDEINIG

Documented by User: Beka Peña MD 05/06/24 23:39
Discharge Summary
Discharge Data
Date of Admission: 05/05/24
Date of Discharge: 05/06/24
Discharge Plan
-
Patient Disposition: Home (Routine Discharge)
Discharge Diagnosis/Procedures: Painless Hematochezia, Mild Anemia, BOY, Hypertension
Condition: Good
Diet: No restrictions
Activity: No restrictions
Driving Restrictions: As prior to admission
Bathing Restrictions: None
Blood Work: CBC in 1 week
Instructions: Gastrointestinal Bleeding (DC)
Referrals:
Michelle Bhat MD [Active] - (call office to set up GI follow up. Will need to consider colonoscopy with recent bleeding)
Sandra Davidson, [Family Provider] - in one to two days (Follow up in 1-2 days w/ Primary Care Provider, repeat CBC in 1 week)
Prescriptions:
Continued
levothyroxine 75 mcg Tablet
75 mcg PO TUTHSA
levothyroxine 88 mcg Tablet
88 mcg PO SUMOWEFR
omeprazole 20 mg Tablet,Delayed Release (Dr/Ec)
20 mg PO DAILY
Discharge Orders:
Discharge Patient (As Directed); Ordered 05/06/24
Ordered By: Lambert Paulson
Discharge Date and Time
Discharge Date/Time: 05/06/24 17:29
Print Language: PRYDEINIG
[2024-05-06 12:12] LABS: Ferritin 21.4 ng/ml (11.1-264.0)
[2024-05-06 12:43] LABS: Folate > 20.0 ng/ml (2.76-20); Vitamin B12 > 1000 pg/ml (239-931)
--- NOTE | 2024-05-06 14:29 | PN.CDI ---
CDI
- -
CDI:
Physician Documentation Request
Admit Date: 05/05/24 04:32
Dear Doctor Khurram,
Clinical Indicators:
Patient admitted with bleeding sigmoid diverticulum.
05/05 H & P, 'Patient complains of feeling very weak....Patient with multiple bloody BMs this evening and continues to pass bloody stool in the ED.'
HR trend on admission: 90-100s
05/06 PN, 'Mild Anemia ... Likely BOY due to volume loss, which is now resolved.'
Hgb/Hct trend:
05/04/24 05/05/24 05/06/24
22:12 12:30 05:52
Hgb 14.1 11.2 L 10.2 L
Hct 40.6 32.4 L 29.7 L
Based on the above, could you clarify, in your progress note, which of the following is the most likely type of anemia you are evaluating, monitoring and/or treating?
Acute blood loss anemia
Acute blood loss anemia with baseline chronic anemia (Specify type)
Chronic anemia only (please specify type)
Other, please specify
Use of terms such as suspected, likely, concern for, or probable (associated with a specific diagnosis that is being evaluated, monitored, or treated as if it exists) are acceptable and can be coded in the inpatient setting, when documented at the
time of discharge.
Thank you,
Claudia Marshall RN BSN
CDI Specialist
available via tiger text
Please use your independent medical judgment in providing your response.
[2024-05-06] MEDS: TYLENOL 650 MG PO (14:44)
--- NOTE | 2024-05-06 18:02 | PTCARENOTE ---
Assumed care of patient at beginning of this shift from previous RN. Diet advanced to full liquids, then low residue; patient tolerated all. No further episodes of bleeding. Seen by GI. Patient discharged; provided with d/c instructions and med
list. Both patient and verbalized understanding; no question.
== END 2024-05-06 17:29 | disposition home or self-care (01) | DRG 378 ==
LOC: IMU 04:32
PROVIDERS: Emergency Medicine; Nurse Practitioner Adult Health; ADMITTING PHYSICIAN Hospitalist; ATTENDING PHYSICIAN Family Medicine; CONSULT PHYSICIAN Internal Medicine Gastroenterology; EMERGENCY PHYSICIAN Student in an Organized Health Care Education/Training Program; FAMILY PHYSICIAN Internal Medicine
DX: K57.31 Diverticulosis of large intestine without perforation or abscess with bleeding (principal); D62 Acute posthemorrhagic anemia; N17.9 Acute kidney failure, unspecified; E03.9 Hypothyroidism, unspecified; I10 Essential (primary) hypertension; K44.9 Diaphragmatic hernia without obstruction or gangrene; N32.3 Diverticulum of bladder; K21.9 Gastro-esophageal reflux disease without esophagitis; E78.00 Pure hypercholesterolemia, unspecified; M54.9 Dorsalgia, unspecified; Z79.890 Hormone replacement therapy; Z88.3 Allergy status to other anti-infective agents; Z87.891 Personal history of nicotine dependence; Z88.1 Allergy status to other antibiotic agents; Z88.2 Allergy status to sulfonamides; Z79.899 Other long term (current) drug therapy
CPT/HCPCS: 36246; 74174; 74177; 75726; 76937; 80048; 80053; 82607; 82728; 82746; 83540; 83550; 83605; 85014; 85018; 85025; 85610; 85730; 86850; 86900; 86901; 93005; 96361; 96374; 99152; 99153; 99285; C1769; Q9967

== ENCOUNTER → 2025-04-05 12:52 | Outpatient (REF) | payer MEDICARE, BC, SELFPAY | LOC: HWRAD 12:52 | PROVIDERS: ATTENDING PHYSICIAN Internal Medicine | DX: R51.9 Headache, unspecified (principal) | CPT/HCPCS: 70450 ==